=== PATIENT | male | born 1950 | race Caucasian/White ===

== ENCOUNTER → 2017-01-30 | Outpatient (CLI) | payer MEDICARE, OTHER ==
--- OUTSIDE RECORDS SUMMARY | 2017-01-30 13:28 | XMS REPORT | Continuity of Care Document ---
Author Author [facility] Organization [facility] Address Unknown Phone Unavailable Care Team Providers Care Intranet Specialist Name Role Phone Natasha Stefan PCP [phone] Source Comments Some departments are not documenting in the electronic medical record. If you do not see the information that you expected, contact Release of Information in the Health Information Management department at [phone] for further assistance in locating additional records.[facility] Active Allergies and Adverse Reactions No Known Allergies Current Medications Prescription Sig. Disp. Refills Start End Date Status Date fluticasone (FLONASE) 50 Insert 1 [place] into nose Active mcg/Actuation nasal spray as directed twice daily. FEXOFENADINE/PSEUDOEPHEDR Take by mouth daily. Active INE (VISHAL-D 24 HOUR PO) TADALAFIL (CIALIS PO) Take by mouth. Active Active Problems Problem Noted Date Prostate cancer (HCC) 07/25/2012 Overview: Patient had a rising PSA of 5.6 which resulted in a prostate biopsy. Biopsy revealed a [place] 9 malignancy - primarily in the left lobe. Patient had a robotic prostatectomy under the direction of Dr. Carrion on October 29, 2011. Stage pT2C N0. PSA rising post-operatively to most recent value of 0.5. Bone scan in July 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 He then received salvage radiation therapy. 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 Pulse 73 12/01/2013 3:00 PM SENIOR ACCOUNTANT CPA Temperature 36.6 C (97.8 F) 12/01/2013 3:00 PM SENIOR ACCOUNTANT CPA Respiratory Rate - - Height 1.88 m (6' 2") 12/01/2013 3:00 PM SENIOR ACCOUNTANT CPA Weight 96.707 kg (213 lb 3.2 oz) 12/01/2013 3:00 PM SENIOR ACCOUNTANT CPA Body Mass Index 27.36 12/01/2013 3:00 PM SENIOR ACCOUNTANT CPA Oxygen Saturation 100% 12/01/2013 3:00 PM SENIOR ACCOUNTANT CPA Plan of Care Health Maintenance Due Date Last Done Comments Physical (Comprehensive) 1957 Exam Pertussis Vaccine 1962 Tetanus Vaccine 1968 Colorectal Cancer 2001 Screening Shingles Vaccine 2011 Prevnar/Pneumovax (#1) 2016 Influenza Vaccine 08/02/2016 Results from Last 3 Months Not on file
== END ==
LOC: EDSTATUS 03-14 13:16 → ONC 13:24
PROVIDERS: ATTEND Radiology Radiation Oncology
DX: C61 Malignant neoplasm of prostate (principal)
CPT/HCPCS: 99214

== ENCOUNTER 2017-02-13 13:35 | Outpatient (RCR) | payer MEDICARE, OTHER ==
--- OUTSIDE RECORDS SUMMARY | 2017-02-08 09:54 | XMS REPORT | Continuity of Care Document ---
Author Author [facility] Organization [facility] Address Unknown Phone Unavailable Care Team Providers Care Dev Ops Engineer Name Role Phone Natasha Stefan PCP [phone] Source Comments Some departments are not documenting in the electronic medical record. If you do not see the information that you expected, contact Release of Information in the Health Information Management department at [phone] for further assistance in locating additional records.[facility] Active Allergies and Adverse Reactions No Known Allergies Current Medications Prescription Sig. Disp. Refills Start End Date Status Date fluticasone (FLONASE) 50 Insert 1 [place] into nose Active mcg/Actuation nasal spray as directed twice daily. FEXOFENADINE/PSEUDOEPHEDR Take by mouth daily. Active INE (VISHAL-D 24 HOUR PO) TADALAFIL (CIALIS PO) Take by mouth. Active Active Problems Problem Noted Date Prostate cancer (HCC) 07/25/2012 Overview: Patient had a rising PSA of 5.6 which resulted in a prostate biopsy. Biopsy revealed a [place] 9 malignancy - primarily in the left lobe. Patient had a robotic prostatectomy under the direction of Dr. Carrion on October 29, 2011. Stage pT2C N0. PSA rising post-operatively to most recent value of 0.5. Bone scan in July 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 He then received salvage radiation therapy. 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 Pulse 73 12/01/2013 3:00 PM AERONAUTICAL DRAFTER Temperature 36.6 C (97.8 F) 12/01/2013 3:00 PM AERONAUTICAL DRAFTER Respiratory Rate - - Height 1.88 m (6' 2") 12/01/2013 3:00 PM AERONAUTICAL DRAFTER Weight 96.707 kg (213 lb 3.2 oz) 12/01/2013 3:00 PM AERONAUTICAL DRAFTER Body Mass Index 27.36 12/01/2013 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
== END 2017-05-09 | disposition home or self-care (01) ==
LOC: ONC 13:35
PROVIDERS: ATTEND Radiology Radiation Oncology
DX: Z51.0 Encounter for antineoplastic radiation therapy (principal); C61 Malignant neoplasm of prostate
CPT/HCPCS: 77290; 77300; 77334; 77470

== ENCOUNTER 2019-12-23 12:47 | Outpatient (RCR) | payer MEDICARE, OTHER | END 2020-03-22 | disposition home or self-care (01) | LOC: ONC 12:47 | PROVIDERS: ATTEND Radiology Radiation Oncology | DX: C61 Malignant neoplasm of prostate (principal) | CPT/HCPCS: 99213 ==

== ENCOUNTER 2021-11-08 09:04 | Outpatient (RCR) | payer MEDICARE, OTHER | END 2021-12-01 | disposition home or self-care (01) | LOC: ONC 09:04 | PROVIDERS: ATTEND Radiology Radiation Oncology | DX: C61 Malignant neoplasm of prostate (principal) | CPT/HCPCS: 99213 ==

== ENCOUNTER 2022-05-25 13:57 | Outpatient (RCR) | payer MEDICARE, OTHER | END 2022-05-31 | disposition home or self-care (01) | LOC: ONC 13:57 | PROVIDERS: ATTEND Radiology Radiation Oncology | DX: Z51.0 Encounter for antineoplastic radiation therapy (principal); C61 Malignant neoplasm of prostate; C79.51 Secondary malignant neoplasm of bone | CPT/HCPCS: 77300; 77301; 77334; 77338; 77470; G0463; 77336; 77386; 99204 ==

== ENCOUNTER 2022-08-30 14:09 | Outpatient (RCR) | payer MEDICARE, OTHER | END 2022-08-31 | disposition home or self-care (01) | LOC: ONC 14:09 | PROVIDERS: ATTEND Radiology Radiation Oncology | DX: Z51.0 Encounter for antineoplastic radiation therapy (principal); C61 Malignant neoplasm of prostate; C79.51 Secondary malignant neoplasm of bone | CPT/HCPCS: 77280; 77290; 77295; 77300; 77334; 77336; 77385; 77470; 99213 ==

== ENCOUNTER 2022-09-05 14:02 | Outpatient (RCR) | payer MEDICARE, OTHER | END 2022-10-01 | disposition home or self-care (01) | LOC: ONC 14:02 | PROVIDERS: ATTEND Radiology Radiation Oncology | DX: Z51.0 Encounter for antineoplastic radiation therapy (principal); C61 Malignant neoplasm of prostate | CPT/HCPCS: 77336 ==

== ENCOUNTER 2022-10-12 10:22 | Outpatient (RCR) | payer MEDICARE, OTHER | END 2022-10-31 | disposition home or self-care (01) | LOC: ONC 10:22 | PROVIDERS: ATTEND Radiology Radiation Oncology | DX: Z51.0 Encounter for antineoplastic radiation therapy (principal); C61 Malignant neoplasm of prostate | CPT/HCPCS: 77295; 77300; 77334; 77412; 77417; 77470; G0463; 99213 ==

== ENCOUNTER 2022-12-24 10:45 | Outpatient (RCR) | payer MEDICARE, OTHER | END 2023-01-01 | disposition home or self-care (01) | LOC: ONC 10:45 | PROVIDERS: ATTEND Radiology Radiation Oncology | DX: Z51.0 Encounter for antineoplastic radiation therapy (principal); C61 Malignant neoplasm of prostate | CPT/HCPCS: 77307; 77334; 99213 ==

== ENCOUNTER 2023-03-07 09:51 | Outpatient (RCR) | payer MEDICARE, OTHER | END 2023-03-31 | disposition home or self-care (01) | LOC: ONC 09:51 | PROVIDERS: ATTEND Radiology Radiation Oncology | DX: C61 Malignant neoplasm of prostate (principal) | CPT/HCPCS: 99213 ==

== ENCOUNTER 2023-04-22 13:06 | Outpatient (RCR) | payer MEDICARE, OTHER | END 2023-05-01 | disposition home or self-care (01) | LOC: ONC 13:06 | PROVIDERS: ATTEND Radiology Radiation Oncology | DX: Z51.0 Encounter for antineoplastic radiation therapy (principal); C61 Malignant neoplasm of prostate | CPT/HCPCS: 77290; 77334; G0463; 77295; 77300; 77336; 77417; 77470; 99213 ==